=== PATIENT | female | born 1975 | race Hispanic/Latino ===

== ENCOUNTER 2017-08-03 15:26 | Emergency (ER) | payer OTHER ==
[~2017-08-03] VITALS: Ht 154.9 cm; Wt 56.7 kg
[2017-08-03] MEDS ORDERED: TETANUS/DIPHTHERIA TOX ADULT 0.5 ML SYR IM ONE (16:00)
[2017-08-03 17:04] LABS: HIV 1&2 AB SCREEN NON-REACTIVE (NONREACTIVE)
== END 2017-08-03 18:22 | disposition home or self-care (01) ==
LOC: ER 15:26
DX: S61.431A Puncture wound without foreign body of right hand, initial encounter (principal); W46.1XXA Contact with contaminated hypodermic needle, initial encounter; Y99.0 Civilian activity done for income or pay
CPT/HCPCS: 36415; 87390; 90471; 90714; 99282; G0433; G0435